=== PATIENT | female | born 1965 | race Caucasian/White ===

== ENCOUNTER 2022-11-20 14:00 | Emergency (ER) | payer OTHER, SELFPAY ==
--- NOTE | 2022-11-20 14:02 | W.ED.BACK ---
HPI - Back Pain/Injury General: Chief Complaint: Back Pain/Injury Stated Complaint: Low back pain Time Seen by Provider: 11/20/22 14:02 Source: patient Mode of arrival: ambulatory Limitations: no limitations History of Present Illness: Patient is a 57-year-old female presents to ED today with a complaint of lower back pain. Patient states she has a longstanding history of lower back pain secondary to multiple bulging disks. She states she has had multiple MRIs of her lower back. She states most of the time her pain is controlled with gentle/passive stretching, ice, heat, avoiding aggravating activities. She states they have recently been traveling a lot and and feels possibly this has aggravated her back. Patient states pain is to her lower back and lower right back with radiation down her right lower extremity all the way to her toes . She states she has never had to come to the ED before for back pain but is currently rating her discomfort at a 10/10. She states she was able to contact her primary care provider yesterday who called her in a prescription for cyclobenzaprine. She states her pain currently feels like her typical back pains-just worse in severity. No saddle anesthesia or bowel/bladder dysfunction. MD elicited complaint: back pain Pertinent past history: prior back pain Onset (ago): day(s) Timing: constant Severity: severe Pain scale (0-10): 10 Similar Symptoms Previously: Yes Location: lumbar spine and right lower back Radiation: right upper leg and right leg below the knee Exacerbating factors: movement and walking Relieving factors: none Associated symptoms: Reports no associated symptoms and difficulty walking (secondary to back pain); Deny abdominal pain, chills, dysuria, fatigue, fever(s) or hematuria Work related injury: No Review of Systems Const: Denies: fever(s), chills, body aches, fatigue or malaise Card: Denies: chest pain Resp: Denies: dyspnea GI: Denies: abdominal pain : Denies: flank pain, dysuria or hematuria Musc: Reports: back pain; Denies: neck pain, extremity swelling, joint pain, joint swelling, joint redness, joint warmth, muscle cramps or muscle weakness Skin/Breast: Denies: rash Neuro: Reports: difficulty walking (secondary to back pain); Denies: headache(s), numbness in extremities, weakness in extremities or sensory changes Physical Exam Const: COMMON NORMALS: average body habitus, patient oriented x3, no limitations, healthy appearing, alert and well nourished GENERAL APPEARANCE: cooperative and in distress (appears uncomfortable on her knees leaning over the bed) ORIENTATION/CONSCIOUSNESS: Yes awake, Yes oriented to person, Yes oriented to place and Yes oriented to time Resp: COMMON NORMALS: normal respiratory effort Cardio: COMMON NORMALS: regular rate and regular rhythm RATE: regular rate RHYTHM: regular rhythm : COMMON NORMALS: Yes no CVA tenderness BLADDER/KIDNEY EXAM: Yes no CVA tenderness Back/Pelvis: COMMON NORMALS: no CVA tenderness THORACIC SPINE/UPPER BACK: No thoracic spinal tenderness, No paraspinal muscle tenderness and No paraspinal muscle spasm LUMBAR SPINE/LOWER BACK: Yes ROM limited, Yes pain with ROM, Yes lumbar spinal tenderness, Yes paraspinal muscle tenderness, No paraspinal muscle spasm and No mass present PELVIS: Yes buttocks normal SACROILIAC JOINTS: Yes SI joint(s) abnormal SI joint details: tender to palpation (right) SACRUM: no tenderness COCCYX: no tenderness BACK IMAGE (FEMALE): 1. TTP Extremity: COMMON NORMALS: normal to inspection, full ROM, capillary refill normal, no joint enlargement, no clubbing, cyanosis or edema, no calf tenderness and no pedal edema GENERAL: Yes normal exam except as noted Neuro: COMMON NORMALS: patient oriented x3, moves all extremities, no focal motor deficits and no sensory deficits noted SENSORIUM/ORIENTATION: Yes alert, Yes oriented to person, Yes oriented to place and Yes oriented to time MOTOR EXAM: 5/5 motor strength present throughout Skin: COMMON NORMALS: no rashes or lesions noted GENERAL SKIN EXAM: no rashes or lesions noted Course Vital Signs: Vital signs: Vital Signs Pulse Rate 93 11/20/22 14:04 Respiratory Rate 20 H 11/20/22 16:20 Blood Pressure 155/84 11/20/22 14:04 Pulse Oximetry 98 11/20/22 14:47 MDM - Back Pain/Injury Medical Decision Making Patient feeling better after IM meds. She states she will follow up with primary care. Return to ED precautions given. Discharge Plan Discharge Patient Disposition: Home Clinical Impression: Acute low back pain with sciatica Qualifiers: Back pain laterality: right Sciatica laterality: sciatica of right side Qualified Code(s): M54.41 - Lumbago with sciatica, right side Condition: Stable Prescriptions: New methocarbamol 500 mg tablet 1,000 mg PO Q8H Qty: 30 0RF prednisone 10 mg tablet 60 mg PO DAILY 5 Days Qty: 30 0RF ibuprofen 800 mg tablet 800 mg PO Q8H PRN (Reason: pain) Qty: 20 0RF hydrocodone-acetaminophen 5-325 mg tablet 1 tab PO Q6H PRN (Reason: pain) Qty: 14 0RF Discharge Orders: Discharge ED (Routine); Ordered 11/20/22 Ordered By: Nimisha Burgos Patient Instructions: Sciatica (ED), Acute Low Back Pain (ED), Opioid Safety, Pain Management Coding Level of Care Code ED [employer] for Saray Juárez
[2022-11-20 14:04] VITALS: BP 155/84; PULSE 93; RESP 20; O2SAT 96; BMI 22.9
[2022-11-20] MEDS: orphenadrine 30 mg/mL Inj 2 mL 60 MG IM (14:43)
[2022-11-20] MEDS: ketorolac 60 mg/2 mL INJ IM (14:46)
[2022-11-20] MEDS: dexamethasone 10 mg/mL INJ 8 MG IM (14:46)
[2022-11-20 14:47] VITALS: RESP 20; O2SAT 98
[2022-11-20] MEDS: morphine 4 mg/mL SDV 1 mL IM (14:47)
[2022-11-20 16:20] VITALS: RESP 20
[2022-11-20] MEDS: HYDROmorphone 1 mg/mL INJ 1 mL IM (16:20)
== END 2022-11-20 16:43 | disposition home or self-care (01) ==
PROVIDERS: Emergency Provider Physician Assistant; PCP Nurse Practitioner Family
DX: M54.41 Lumbago with sciatica, right side (principal)
CPT/HCPCS: 96372; 99284; J1100; J1170; J1885; J2270; J2360